=== PATIENT | male | born 1945 | race Caucasian/White ===

== ENCOUNTER 2019-05-17 | Observation (INO) | payer MEDICARE | END 2019-05-19 15:21 | disposition home or self-care (01) | PROVIDERS: ADMIT Hospitalist | CPT/HCPCS: 96376 ×2; 96375; 93005 ×2; 96374; 99285; 36415; 94640 ×5; 85379; 83880 ×2; 80061; 80048 ×3; 83735; 84484; 85025; 87502; 71046; G0378 ×3; J1940 ×2; J7512 ×2 ==

== ENCOUNTER 2020-07-26 11:47 | Emergency (ER) | payer MEDICARE ==
[2020-07-26 11:55] VITALS: TEMP 98.2
[2020-07-26 12:36] LABS: Appearance,Urine Clear (Clear); Bilirubin,Urine Negative (Negative); Blood,Urine Small (Negative); Color,Urine Yellow; Glucose,Urine (UA) 4+ (Negative); Ketones,Urine Negative (Negative); Leukocyte Esterase,Urine Negative (Negative); Mucus,Urine Rare /hpf; Nitrite,Urine Negative (Negative); Protein,Urine 3+ (Negative); RBC,Urine 3 /hpf (0-5); Specific Gravity,Urine 1.015 (1.001-1.035); Urobilinogen,Urine <2.0 mg/dL (<2.0); WBC,Urine 3 /hpf (0-5)
--- NOTE | 2020-07-26 14:50 | ED ---
General Adult HPI <Ranjeet Alarcon - Last Filed: 07/26/20 15:21> - General Source: patient, family Mode of arrival: ambulatory Limitations: no limitations <Neftaly Ortega - Last Filed: 07/26/20 15:23> - General Chief complaint: Urogenital Stated complaint: Urogenital Time Seen by Provider: 07/26/20 14:04 - History of Present Illness Initial comments: 74-year-old male with pertinent past medical history of prostate disorder presents to the emergency room for a chief complaint of difficulty urinating. Patient states that since Thursday he has had pressure in his suprapubic area and his urine stream has decreased. States he feels like he has to urinate but can only dribble. He states he has had issues with this before and is on Flomax. He has never had to have a catheter.Patient has no other complaints at this time including shortness of breath, chest pain, abdominal pain, nausea or vomiting, headache, or visual changes. (Neftaly Ortega) - Related Data Home Medications Medication Instructions Recorded Confirmed Ezetimibe [Zetia] 10 mg PO DAILY 05/17/19 05/17/19 Fenofibrate Nanocrystallized 145 mg PO DAILY 05/17/19 05/17/19 [Fenofibrate] INSULIN ASPART (NovoLOG) [NovoLOG 14 unit SQ AC-TID 05/17/19 05/17/19 (formulary)] Insulin Glargine [Lantus] 50 unit SQ HS 05/17/19 05/17/19 Losartan Potassium [Cozaar] 50 mg PO DAILY 05/17/19 05/17/19 Rosuvastatin Calcium [Crestor] 20 mg PO DAILY 05/17/19 05/17/19 Tamsulosin HCl [Flomax] 0.4 mg PO DAILY 05/17/19 05/17/19 metFORMIN HCL 1,000 mg PO AC-BID 05/17/19 05/17/19 Previous Rx's Medication Instructions Recorded Metoprolol Tartrate [Lopressor] 50 mg PO BID #60 tab 08/14/13 Aspirin 81 mg PO DAILY chew 05/19/19 Beclomethasone Dip 80 Mcg/Puff 1 puff INHALATION DAILY #1 puff 05/19/19 [Qvar] Furosemide [Lasix] 20 mg PO DAILY #30 tab 05/19/19 Ipratropium-Albuterol Nebulize 3 ml INHALATION BID #60 ml 05/19/19 [Duoneb 0.5 mg-3 mg/3 ml Soln] hydrALAZINE HCL [Apresoline] 25 mg PO TID #90 tab 05/19/19 Allergies Allergy/AdvReac Type Severity Reaction Status Date / Time No Known Allergies Allergy Verified 07/26/20 11:55 Review of Systems ROS Other: All systems not noted in ROS Statement are negative. <Ranjeet Alarcon - Last Filed: 07/26/20 15:21> ROS Other: All systems not noted in ROS Statement are negative. <Neftaly Ortega - Last Filed: 07/26/20 15:23> ROS Statement: Those systems with pertinent positive or pertinent negative responses have been documented in the HPI. Past Medical History Past Medical History: Coronary Artery Disease (CAD), Chest Pain / Angina, Diabetes Mellitus, Eye Disorder, GERD/Reflux, Hyperlipidemia, Hypertension, Myocardial Infarction ([place]), Prostate Disorder Additional Past Medical History / Comment(s): IDDM type II, BPH, R eye start of pt believes glaucoma, L eye surgery and has decreased vision in that eye, chronic low back pain/T shoulder pain with limited ROM past few months, BPH. Last Myocardial Infarction Date:: 2013 History of Any Multi-Drug Resistant Organisms: None Reported Past Surgical History: Coronary Bypass/CABG, Heart Catheterization, Hernia Repair Additional Past Surgical History / Comment(s): 2013 CABG 4 vessel, abdominal hernia repair, colonoscopy, L eye "cataract fell behind eye and surgery performed to retrieve it caused damage/decreased vision. Past Anesthesia/Blood Transfusion Reactions: No Reported Reaction Past Psychological History: No Psychological Hx Reported Smoking Status: Never smoker Past Alcohol Use History: Occasional Past Drug Use History: None Reported - Past Family History Father Family Medical History: Renal Disease Additional Family Medical History / Comment(s): Father from renal failure. He was on dialysis. Brother(s) Family Medical History: Renal Disease Additional Family Medical History / Comment(s): Pt has 2 brothers who from renal failure. Both were on dialysis. Mother Family Medical History: Dementia, Diabetes Mellitus, Vascular Disorder Additional Family Medical History / Comment(s): Mother had a abdominal aneurysm. She lived into her 90s. <Neftaly Ortega P - Last Filed: 07/26/20 15:23> General Exam Limitations: no limitations General appearance: alert, in no apparent distress Head exam: Present: atraumatic Eye exam: Present: normal appearance, PERRL, EOMI. Absent: scleral icterus, conjunctival injection, periorbital swelling ENT exam: Present: normal exam, mucous membranes moist Neck exam: Present: normal inspection, full ROM. Absent: tenderness, meningismus, lymphadenopathy Respiratory exam: Present: normal lung sounds bilaterally. Absent: respiratory distress, wheezes, rales, rhonchi, stridor Cardiovascular Exam: Present: regular rate, normal rhythm, normal heart sounds. Absent: systolic murmur, diastolic murmur, rubs, gallop, clicks GI/Abdominal exam: Present: soft, tenderness (Minimal suprapubic tenderness.), normal bowel sounds. Absent: distended, guarding, rebound, rigid <Neftaly Ortega - Last Filed: 07/26/20 15:23> Course <Ranjeet Alarcon - Last Filed: 07/26/20 15:21> Vital Signs 07/26/20 11:52 Temperature 98.2 F Pulse Rate 98 Respiratory 18 Rate Blood Pressure 207/107 O2 Sat by Pulse 95 Oximetry - Reevaluation(s) Reevaluation #1: 07/26/20 15:22 PA supervision: I personally evaluate this case patient did present with complaints of suprapubic discomfort and decreased urinary output for 3 days. He's had frequency. No fevers chills or sweats. He is found clinically to have a distended bladder and bladder scan large amount of urine present. The symptoms resolve after catheterization. Also he is not taking his blood pressure medicines for a couple days. He is asymptomatic otherwise he'll be placed back on his medications and follow-up. I do agree with the assessment and plan (Ranjeet Alarcon) Medical Decision Making <Neftaly Ortega - Last Filed: 07/26/20 15:23> - Medical Decision Making Patient hypertensive likely secondary to pain as well as the fact that he has not taken his metoprolol, hydralazine, or losartan for 2 days because he has not felt well. Patient does not have any symptoms of hypertension including chest pain, shortness of breath, dizziness, headache. Dubois catheter was placed and patient did have 1400 mls retained in his bladder. There is a small amount of blood however no obvious evidence of infection. This is likely related to out what obstruction. At this time patient can be discharged home to follow up with urology. He is to return here for any worsening symptoms. (Neftaly Ortega) - Lab Data Lab Results 07/26/20 Range/Units 11:58 Urine Color Yellow Urine Appearance Clear (Clear) Urine pH 6.0 (5.0-8.0) Ur Specific [place] 1.015 (1.001-1.035) Urine Protein 3+ H (Negative) Urine Glucose (UA) 4+ H (Negative) Urine Ketones Negative (Negative) Urine Blood Small H (Negative) Urine Nitrite Negative (Negative) Urine Bilirubin Negative (Negative) Urine Urobilinogen <2.0 (<2.0) mg/dL Ur Leukocyte Esterase Negative (Negative) Urine RBC 3 (0-5) /hpf Urine WBC 3 (0-5) /hpf Urine Mucus Rare H (None) /hpf Disposition <Ranjeet Alarcon - Last Filed: 07/26/20 15:21> Is patient prescribed a controlled substance at d/c from ED?: No Time of Disposition: 15:18 <Neftaly Ortega - Last Filed: 07/26/20 15:23> Clinical Impression: Urinary retention, Hypertension Disposition: HOME SELF-CARE Condition: Good Instructions (If sedation given, give patient instructions): Dubois Catheter Placement and Care (ED) Additional Instructions: Please follow up with urology by calling tomorrow or today for the earliest available appointment. Please follow-up with primary care as well. Return to the emergency room for any worsening symptoms. Referrals: Zita Tai MD [Primary Care Provider] - 1-2 days Blaise Coates MD [STAFF PHYSICIAN] - 1-2 days
[2020-07-26 15:34] VITALS: BP 206/114; PULSE 97; RESP 16
== END 2020-07-26 15:30 | disposition home or self-care (01) ==
LOC: EC 11:47
DX: N40.1 Benign prostatic hyperplasia with lower urinary tract symptoms (principal); R33.8 Other retention of urine; I10 Essential (primary) hypertension; E11.36 Type 2 diabetes mellitus with diabetic cataract; E78.5 Hyperlipidemia, unspecified; I25.10 Atherosclerotic heart disease of native coronary artery without angina pectoris; I25.2 Old myocardial infarction; K21.9 Gastro-esophageal reflux disease without esophagitis; Z79.4 Long term (current) use of insulin; Z79.51 Long term (current) use of inhaled steroids; Z79.82 Long term (current) use of aspirin; Z83.3 Family history of diabetes mellitus; Z95.1 Presence of aortocoronary bypass graft
CPT/HCPCS: 51702; 81001; 99283

== ENCOUNTER → 2020-09-06 | Outpatient (CLI) | payer MEDICARE ==
[2020-09-06 12:52] LABS: Basophils % (A) 1 %; Eosinophils # (A) 0.8 k/uL (0-0.7); Eosinophils % (A) 13 %; HCT 40.6 % (39.0-53.0); HGB 13.4 gm/dL (13.0-17.5); Lymphocytes # (A) 1.1 k/uL (1.0-4.8); Lymphocytes % (A) 18 %; MCH 29.1 pg (25.0-35.0); MCV 88.1 fL (80.0-100.0); Monocytes # (A) 0.4 k/uL (0-1.0); Monocytes % (A) 6 %; Neutrophils # (A) 3.7 k/uL (1.3-7.7); Neutrophils % (A) 60 %; Platelet Count 247 k/uL (150-450); RBC 4.61 m/uL (4.30-5.90); RDW 14.2 % (11.5-15.5); WBC 6.2 k/uL (3.8-10.6)
[2020-09-06 13:14] LABS: Calcium 9.9 mg/dL (8.4-10.2); Potassium 4.4 mmol/L (3.5-5.1)
== END | disposition home or self-care (01) ==
LOC: LABPAT 11:26
PROVIDERS: ATTEND Urology
DX: Z01.812 Encounter for preprocedural laboratory examination (principal); E11.9 Type 2 diabetes mellitus without complications; N39.0 Urinary tract infection, site not specified; N40.1 Benign prostatic hyperplasia with lower urinary tract symptoms
CPT/HCPCS: 36415; 80048; 85025; 87086

== ENCOUNTER 2020-09-13 08:09 | Day surgery (SDC) | payer MEDICARE ==
[2020-09-11 10:55] VITALS: BMI 28.5
[~2020-09-13 08:09] MED LIST: DEXAMETHASONE SOD PHOSPHATE 4 MG/ML 1 ML VIAL IV ONE; GENTAMICIN 130 MG in SODIUM CHLORIDE 0.9% 100 ML IVPB PRN; HYDROmorphone 0.5 MG/0.5 ML SYRINGE IVP PRN; LIDOCAINE 1% (10MG/ML) FOR IV START INTRADERMA PRN; MIDAZOLAM 2 MG/2 ML VIAL IV PRN; ONDANSETRON 4 MG/2 ML VIAL IVP ONE
[2020-09-13] MEDS: LACTATED RINGERS 1,000 ML IV SCH ×2 (09:32→09:50)
[2020-09-13 09:54] LABS: Glucose,Whole Blood 96 mg/dL (75-99)
--- NOTE | 2020-09-13 10:04 | P.GSHP ---
History of Present Illness H&P Date: 09/07/20 Chief Complaint: Urinary retention The patient is a 74-year-old white male who presented in July 2020 [place] retention. 1400 mL of urine was drained from the bladder. He failed a voiding trial despite treatment with tamsulosin. A cystometrogram suggests normal detrusor function. Cystoscopy shows a visually occluded prostate with a trilobar configuration, and bladder trabeculation. He has elected to undergo a TURP and comes for this reason. - Cardiovascular Cardiovascular: Reports high blood pressure - Genitourinary (Male) Genitourinary: Reports as per HPI Past Medical History Past Medical History: Coronary Artery Disease (CAD), Chest Pain / Angina, Diabetes Mellitus, Eye Disorder, GERD/Reflux, Hyperlipidemia, Hypertension, Myocardial Infarction ([place]), Prostate Disorder Additional Past Medical History / Comment(s): IDDM type II, BPH, R eye start of pt believes glaucoma, L eye surgery and has decreased vision in that eye, chronic low back pain/T shoulder pain with limited ROM past few months, BPH. Last Myocardial Infarction Date:: 2013 History of Any Multi-Drug Resistant Organisms: None Reported Past Surgical History: Coronary Bypass/CABG, Heart Catheterization, Hernia Repair Additional Past Surgical History / Comment(s): 2013 CABG 4 vessel, abdominal hernia repair, colonoscopy, L eye "cataract fell behind eye and surgery performed to retrieve it caused damage/decreased vision. Past Anesthesia/Blood Transfusion Reactions: No Reported Reaction Past Psychological History: No Psychological Hx Reported Smoking Status: Never smoker Past Alcohol Use History: Occasional Past Drug Use History: None Reported - Past Family History Father Family Medical History: Renal Disease Additional Family Medical History / Comment(s): Father from renal failure. He was on dialysis. Brother(s) Family Medical History: Renal Disease Additional Family Medical History / Comment(s): Pt has 2 brothers who from renal failure. Both were on dialysis. Mother Family Medical History: Dementia, Diabetes Mellitus, Vascular Disorder Additional Family Medical History / Comment(s): Mother had a abdominal aneurysm. She lived into her 90s. Medications and Allergies Home Medications Medication Instructions Recorded Confirmed Type Ezetimibe [Zetia] 10 mg PO DAILY 05/17/19 09/13/20 History Fenofibrate Nanocrystallized 145 mg PO HS 05/17/19 09/13/20 History [Fenofibrate] INSULIN ASPART (NovoLOG) [NovoLOG 12 unit SQ AC-BID 05/17/19 09/13/20 History (formulary)] Insulin Glargine [Lantus] 50 unit SQ HS 05/17/19 09/13/20 History Losartan Potassium [Cozaar] 50 mg PO HS 05/17/19 09/13/20 History Rosuvastatin Calcium [Crestor] 20 mg PO DAILY 05/17/19 09/13/20 History Tamsulosin HCl [Flomax] 0.4 mg PO DAILY 05/17/19 09/13/20 History metFORMIN HCL 1,000 mg PO BID 05/17/19 09/13/20 History Aspirin 81 mg PO DAILY chew 05/19/19 09/13/20 Rx Furosemide [Lasix] 20 mg PO DAILY #30 tab 05/19/19 09/13/20 Rx Beclomethasone Dip 80 Mcg/Puff 1 puff INHALATION DAILY PRN 09/11/20 09/13/20 History [Qvar] Metoprolol Tartrate [Lopressor] 50 mg PO QAM 09/11/20 09/13/20 History Multivitamins, Thera [Multivitamin 1 tab PO DAILY 09/11/20 09/13/20 History (formulary)] hydrALAZINE HCL [Apresoline] 25 mg PO QAM 09/11/20 09/13/20 History Allergies Allergy/AdvReac Type Severity Reaction Status Date / Time No Known Allergies Allergy Verified 09/13/20 09:40 Surgical - Exam - General well developed, well nourished, no distress - Neck no masses, trachea midline - Respiratory normal respiratory effort - Abdomen Abdomen: soft, non tender, no guarding, no rigid, no rebound - Genitourinary normal penis with no external lesions, testicles non-tender - Rectum Rectum: normal sphincter tone, no masses, other (Prostate enlarged but smooth) - Psychiatric oriented to time, oriented to person, oriented to place, speech is normal, memory intact Assessment and Plan (1) Urinary retention Current Visit: No Status: Acute Code(s): R33.9 - RETENTION OF URINE, UNSPECIFIED SNOMED Code(s): 355098757 Plan: Cystoscopy, bipolar transurethral resection of prostate (TURP). The procedure has been reviewed in detail with the patient and his . The anticipated perioperative course was discussed, as was the rationale for the procedure and potential risks, which include anesthesia, bleeding, infection, urinary incontinence, and persistent urinary retention.
[2020-09-13] MEDS ORDERED: LIDOCAINE 1% INJ 10MG/ML (20 ML MDV) ONE (10:14)
[2020-09-13] MEDS ORDERED: ROCURONIUM 10 MG/ML (5 ML VIAL) IV ONE (10:14)
[2020-09-13] MEDS ORDERED: NEOSTIGMINE 1 MG/ML 10 ML VIAL ONE (10:14)
[2020-09-13] MEDS ORDERED: HYDROmorphone (PF) 1 MG/ML ONE (10:14)
[2020-09-13] MEDS ORDERED: GLYCOPYRROLATE 0.2 MG/ML 2 ML VIAL ONE (10:14)
[2020-09-13] MEDS ORDERED: SUCCINYLCHOLINE CHLORIDE 100 MG/5 ML SYR IV ONE (10:14)
[2020-09-13] MEDS ORDERED: FUROSEMIDE 10 MG/ML 2 ML VIAL ONE (10:14)
[2020-09-13] MEDS ORDERED: ePHEDrine SULFATE/0.9% NACL/PF 50 MG/5 ML SYRINGE IV ONE (10:14)
[2020-09-13] MEDS ORDERED: PROPOFOL 10 MG/ML 20 ML VIAL IV ONE (10:14)
[2020-09-13] MEDS ORDERED: fentaNYL (PF) 50 MCG/ML 2 ML AMP ONE (10:14)
[2020-09-13] MEDS ORDERED: LACTATED RINGERS 1,000 ML IV ONE (12:56)
--- NOTE | 2020-09-13 13:18 | P.OP ---
Date of Procedure: 09/13/20 Preoperative Diagnosis: Urinary retention secondary to BPH Postoperative Diagnosis: Same Procedure(s) Performed: Cystoscopy, bipolar transurethral resection of prostate (TURP) Anesthesia: LIZA Surgeon: Blaise Coates Estimated Blood Loss (ml): 50 IV fluids (ml): 1,000 Condition: stable Disposition: PACU Indications for Procedure: The patient is a 74-year-old white male who presented in July 2020 [place] retention. 1400 mL of urine was drained from the bladder. He failed a voiding trial despite treatment with tamsulosin. A cystometrogram suggests normal detrusor function. Cystoscopy shows a visually occluded prostate with a trilobar configuration, and bladder trabeculation. He has elected to undergo a TURP and comes for this reason. Operative Findings: Completely occluded prostate, trilobar configuration. Description of Procedure: The patient was taken in the operating room and placed in the dorsolithotomy position. The external genitalia was prepped and draped sterilely. The 25- [place] ACMI resectoscope sheath was introduced into the bladder. The bladder was inspected. Both ureteral orifices were of normal anatomic location and configuration, and clear urine effluxed from both. No tumors or foreign bodies were seen. Examination of the prostate revealed complete obstruction with a trilobar configuration. Using the bipolar cutting loop, the median lobe was resected in its entirety. This allowed the resectoscope to be easily advanced into the bladder. Next, the lateral lobes were resected down to the surgical capsule. The floor of the prostate was then resected, proximal to the verumontanum. Next, the remaining anterior tissue was resected. The residual apical tissue was then carefully resected, with care taken to avoid injury to the external urinary sphincter. The resection was carried down to the surgical capsule in all 4 quadrants. The prostatic fossa was then carefully examined, and any areas of bleeding were controlled with electrocautery. Excellent hemostasis was attained. The resectoscope was withdrawn into the bulbous urethra. The external urinary sphincter remained intact. The prostatic fossa was open. The Aspen Evian evacuator was used to remove all prostate chips from the bladder. These were saved and sent for pathologic examination. The resectoscope was removed, and a 20 [place] Dubois catheter was placed. The return was essentially clear. The patient tolerated the procedure well was taken to the recovery room in stable condition.
[2020-09-13 13:24] VITALS: TEMP 97.1
[2020-09-13 13:40] VITALS: RESP 16
[2020-09-13 13:48] LABS: Glucose,Whole Blood 81 mg/dL (75-99)
[2020-09-13 14:44] VITALS: BP 148/78; PULSE 68
== END 2020-09-13 15:10 | disposition home or self-care (01) ==
LOC: OR 08:09
PROVIDERS: ATTEND Urology
DX: N40.1 Benign prostatic hyperplasia with lower urinary tract symptoms (principal); R33.8 Other retention of urine; E78.5 Hyperlipidemia, unspecified; I10 Essential (primary) hypertension; I25.10 Atherosclerotic heart disease of native coronary artery without angina pectoris; I25.2 Old myocardial infarction; K21.9 Gastro-esophageal reflux disease without esophagitis; N13.8 Other obstructive and reflux uropathy; N32.89 Other specified disorders of bladder; E11.9 Type 2 diabetes mellitus without complications; Z79.4 Long term (current) use of insulin; Z79.51 Long term (current) use of inhaled steroids; Z79.82 Long term (current) use of aspirin; Z83.3 Family history of diabetes mellitus; Z95.1 Presence of aortocoronary bypass graft
CPT/HCPCS: 52601; 88305; J1940; J2710; J0690; J2001; J3010; J1580; J1170; J0330; J2704

== ENCOUNTER → 2021-05-10 | Outpatient (CLI) | payer MEDICARE ==
[~2021-05-10] MED LIST changes: -DEXAMETHASONE SOD PHOSPHATE 4 MG/ML 1 ML VIAL IV ONE; -GENTAMICIN 130 MG in SODIUM CHLORIDE 0.9% 100 ML IVPB PRN; -HYDROmorphone 0.5 MG/0.5 ML SYRINGE IVP PRN; +IODINE/POTASS IOD (LUGOLS) BOTTLE TOPICAL ONE; -LIDOCAINE 1% (10MG/ML) FOR IV START INTRADERMA PRN; -MIDAZOLAM 2 MG/2 ML VIAL IV PRN; -ONDANSETRON 4 MG/2 ML VIAL IVP ONE
--- NOTE | 2021-05-13 07:45 | NM ---
EXAMINATION TYPE: NM DatScan Brain SPECT DATE OF EXAM: 05/10/2021 COMPARISON: NONE HISTORY: G 25.0, tremor TECHNIQUE: 10 drops of Lugol's solution was administered 1 hour prior to injection as a thyroid bloc natasha agent. After the administration of 4.4 mCi I-123 Ioflupane DaTscan. Images obtained [address] injection. SPECT images of the brain were acquired with axial and coronal reconstructions. FINDINGS: There is abnormal decreased uptake within the striata bilaterally. Striatal uptake is also asymmetric , somewhat decreased overall on the right as compared to left. IMPRESSION: Abnormal ROSA scan
== END | disposition home or self-care (01) ==
LOC: RADNMMAIN 10:30
PROVIDERS: ATTEND Psychiatry & Neurology Neurology
DX: G25.0 Essential tremor (principal)
CPT/HCPCS: 78803; A9584

== ENCOUNTER 2024-04-26 09:26 | Day surgery (SDC) | payer MEDICARE ==
[~2024-04-26 09:26] MED LIST changes: -IODINE/POTASS IOD (LUGOLS) BOTTLE TOPICAL ONE; +LIDOCAINE 1% (10MG/ML) FOR IV START INTRADERMA PRN
[2024-04-26] MEDS: IV FLUID CONTINUATION 1,000 ML IV ONE (10:04)
[2024-04-26 10:10] VITALS: TEMP 98
[2024-04-26] MEDS: LACTATED RINGERS 1,000 ML IV SCH (10:25)
[2024-04-26 10:29] LABS: Glucose,Whole Blood 81 mg/dL (70-110)
[2024-04-26] MEDS ORDERED: LIDOCAINE 1% INJ 10MG/ML (20 ML MDV) ONE (10:58)
[2024-04-26] MEDS ORDERED: PROPOFOL 10 MG/ML 20 ML VIAL IV ONE (10:58)
--- NOTE | 2024-04-26 11:15 | P.PCN ---
Date of Procedure: 04/26/24 Procedure(s) Performed: BRIEF HISTORY: Patient is a 78-year-old, pleasant, white man scheduled for an upper endoscopy as a part of evaluation of intermittent dysphagia to solids for the last 3 months duration.. PROCEDURE PERFORMED: Esophagogastroduodenoscopy biopsy and dilation. PREOPERATIVE DIAGNOSIS: Intermittent dysphagia to solids. IV sedation per anesthesia. PROCEDURE: After informed consent was obtained, the patient was brought into the endoscopy unit. IV sedation was administered by Anesthesia under continuous monitoring. Initially the Olympus GIF-140 video endoscope was inserted into the mouth. Esophagus intubated without any difficulty. It was gradually advanced into the stomach and duodenum and carefully examined. The bulb and the second part of the duodenum appeared normal. The scope at this time was withdrawn to the stomach, adequately insufflated with air, and upon careful examination, mucosa of the antrum, had gastritis and biopsies were done from this area. Mucosa body, cardia and the fundus appeared normal. The scope was then withdrawn into the esophagus. The GE junction was located at 40 cm from the incisors. A long segment of Guadarrama's esophagus extending from 35 to 40 cm from the incisors and multiple biopsies were done from this area. The rest of the esophagus appeared normal. There were no erosions or ulcerations seen. In the proximal cervical esophagus there was a circumferential esophageal web identified at 16 cm from the incisors and this was dilated using for 1215 mm TTS balloon. Also there was evidence of mild cricopharyngeal dysfunction noted. And the patient tolerated the procedure well. IMPRESSION: 1. 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 2. 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 Mild cricopharyngeal dysfunction 4. Mild antral gastric RECOMMENDATIONS: The findings of this examination were discussed with the patient as well as his family. He was advised to follow-up with the biopsy res ults. Remain on clear request for 2 hours. If the biopsy confirms the presence of Guadarrama's esophagus he can have repeat upper endoscopy in 3 years..
[2024-04-26 12:07] VITALS: BP 156/81; PULSE 60; RESP 18
== END 2024-04-26 12:23 | disposition home or self-care (01) ==
LOC: ORWHC2ENDO 09:26
PROVIDERS: ATTEND Internal Medicine Gastroenterology
DX: K29.50 Unspecified chronic gastritis without bleeding (principal); K22.70 Barrett's esophagus without dysplasia; Q39.4 Esophageal web; I25.2 Old myocardial infarction; E78.5 Hyperlipidemia, unspecified; I11.0 Hypertensive heart disease with heart failure; I50.9 Heart failure, unspecified; E11.9 Type 2 diabetes mellitus without complications; G40.909 Epilepsy, unspecified, not intractable, without status epilepticus; M19.90 Unspecified osteoarthritis, unspecified site; G20.A1 Parkinson's disease without dyskinesia, without mention of fluctuations; K21.9 Gastro-esophageal reflux disease without esophagitis; N42.9 Disorder of prostate, unspecified; Z86.73 Personal history of transient ischemic attack (TIA), and cerebral infarction without residual deficits; Z98.890 Other specified postprocedural states; Z95.5 Presence of coronary angioplasty implant and graft; Z87.891 Personal history of nicotine dependence; Z79.82 Long term (current) use of aspirin; Z79.899 Other long term (current) drug therapy
CPT/HCPCS: 88305; 43239; 43249; J2003; J2704; C1726

== ENCOUNTER 2024-08-17 12:08 | Emergency (ER) | payer MEDICARE ==
[2024-08-17 12:35] VITALS: TEMP 98
--- NOTE | 2024-08-17 13:07 | ED ---
General Adult HPI - General Chief complaint: Nausea/Vomiting/Diarrhea Stated complaint: Post-op issue Time Seen by Provider: 08/17/24 12:35 Source: patient, family, RN notes reviewed, old records reviewed Mode of arrival: ambulatory Limitations: no limitations - History of Present Illness Initial comments: This is an 78-year-old male who presents to the emergency department stating that he has had difficulty swallowing since July 04. Patient had surgery done at [facility] on his esophagus and he continues to have problems swallowing and anytime he seems to take his pills he vomits them up. Patient states his surgeon told him come down to [facility] but they did not want to drive that far because its about 3-[address] so they decided to come here. patient states he is not nauseous unless he eats something and when he eats things he feels like it backs up in his esophagus and he eventually vomits it up. Patient states he has been losing weight. Patient denies any dizziness or lightheadedness. Patient denies any chest pain or difficulty breathing patient denies fever or chills. Patient states things have really not changed but they are not improving so he cannot continue to lose weight so would like to be worked up further. - Related Data Home Medications Medication Instructions Recorded Confirmed INSULIN ASPART (NovoLOG) [NovoLOG See Protocol SQ AC-BID 05/17/19 04/26/24 (formulary)] Insulin Glargine (Lantus) [Lantus 38 unit SQ HS 05/17/19 04/26/24 Vial] Multivitamins, Thera [Multivitamin 1 tab PO DAILY 09/11/20 04/26/24 (formulary)] Ezetimibe [Zetia] 10 mg PO DAILY 05/09/22 04/26/24 Furosemide [Lasix] 20 mg PO DAILY 05/09/22 04/26/24 Losartan [Cozaar] 50 mg PO DAILY 05/09/22 04/26/24 Rosuvastatin [Crestor] 20 mg PO HS 05/09/22 04/26/24 Tamsulosin HCl [Flomax] 0.4 mg PO DAILY 05/09/22 04/26/24 Carbidopa-Levodopa 10-100 mg 1 each PO HS 04/22/24 04/26/24 [Sinemet 10-100] carvediloL [Coreg] 12.5 mg PO BID 04/22/24 04/26/24 rOPINIRole HCL [Requip] 1 mg PO TID 04/22/24 04/26/24 Docusate [Colace] 100 mg PO HS PRN 04/25/24 04/26/24 Previous Rx's Medication Instructions Recorded Aspirin 81 mg PO DAILY chew 05/19/19 Allergies Allergy/AdvReac Type Severity Reaction Status Date / Time No Known Allergies Allergy Verified 04/26/24 10:10 Review of Systems ROS Statement: Those systems with pertinent positive or pertinent negative responses have been documented in the HPI. ROS Other: All systems not noted in ROS Statement are negative. Past Medical History Past Medical History: Coronary Artery Disease (CAD), Chest Pain / Angina, Heart Failure, Diabetes Mellitus, Eye Disorder, GERD/Reflux, Hyperlipidemia, Hypertension, Myocardial Infarction (MT), Osteoarthritis (OA), Prostate Disorder Additional Past Medical History / Comment(s): parkinsons-hand tremors, dysphagia w/solids & liquids, seizure vs stroke a few yrs ago-took seizure med for short period of time but not clear which occurred Last Myocardial Infarction Date:: 2013 History of Any Multi-Drug Resistant Organisms: None Reported Past Surgical History: Coronary Bypass/CABG, Heart Catheterization, Hernia Repair, Pacemaker Additional Past Surgical History / Comment(s): 5 way bypass Past Anesthesia/Blood Transfusion Reactions: No Reported Reaction Type of Cardiac Device: Permanent Pacemaker Device Placement Date:: unknown Past Psychological History: No Psychological Hx Reported Smoking Status: Former smoker Past Alcohol Use History: Occasional Past Drug Use History: None Reported - Past Family History Mother Family Medical History: Dementia, Diabetes Mellitus, Vascular Disorder Additional Family Medical History / Comment(s): Mother had a abdominal aneurysm. She lived into her 90s. General Exam - General Exam Comments Initial Comments: GENERAL: Patient is well-developed and well-nourished. Patient is nontoxic and well-hyd rated and is in no acute distress. ENT: Neck is soft and supple. No significant lymphadenopathy is noted. Oropharynx is clear. Moist mucous membranes. Neck has full range of motion without elicit ing any pain. EYES: The sclera were anicteric and conjunctiva were pink and moist. Extraocular mov ements were intact and pupils were equal round and reactive to light. Eyelids were unremarkable. PULMONARY: Unlabored respirations. Good breath sounds bilaterally. No audible rales rhonchi or wheezing was noted. CARDIOVASCULAR: There is a regular rate and rhythm without any murmurs gallops or rubs. ABDOMEN: Soft and nontender with normal bowel sounds. SKIN: Skin is clear with no lesions or rashes and otherwise unremarkable. NEUROLOGIC: Patient is alert and oriented x3. Cranial nerves II through XII are grossly intact. Motor and sensory are also intact. Normal speech, volume and content. Symmetrical smile. MUSCULOSKELETAL: Normal extremities with adequate strength and full range of motion. No lower extremity swelling or edema. No calf tenderness. PSYCHIATRIC: Normal psychiatric evaluation. Limitations: no limitations Course Vital Signs 08/17/24 08/17/24 12:32 13:13 Temperature 98 F Pulse Rate 87 77 Respiratory 20 16 Rate Blood Pressure 166/90 188/94 O2 Sat by Pulse 97 98 Oximetry Medical Decision Making - Medical Decision Making Was pt. sent in by a medical professional or institution (SHAILA Dacosta, COURT BAILIFF, urgent care, hospital, or shelter...) When possible be specific @ -No Did you speak to anyone other than the patient for history (EMS, parent, family, police, friend...)? What history was obtained from this source @ -No Did you review nursing and triage notes (agree or disagree)? Why? @ -I reviewed and agree with nursing and triage notes Were old charts reviewed (outside hosp., previous admission, EMS record, old EKG, old radiological studies, urgent care reports/EKG's, shelter records)? Report findings @ -No old charts were reviewed Differential Diagnosis? @ -Difficulty swallowing, dehydration, acute vomiting, this is not an all- inclusive list EKG interpreted by me (3pts min.). @ -As above X-rays interpreted by me (1pt min.). @ -None done CT interpreted by me (1pt min.). @ -None done U/S interpreted by me (1pt. min.). @ -None done What testing was considered but not performed or refused? (CT, X-rays, U/S, labs)? Why? @ -None What meds were considered but not given or refused? Why? @ -None Did you discuss the management of the patient with other professionals (professionals i.e. SHAILA Dacosta, COURT BAILIFF, lab, RT, psych nurse, social media community manager, public address announcer, teacher, records officer, protective services case worker)? Give summary @ -No Was smoking cessation discussed for >3mins.? @ -No Was critical care preformed (if so, how long)? @ -No Were there social determinants of health that impacted care today? How? (Homelessness, low income, unemployed, alcoholism, drug addiction, transportation, low edu. Level, literacy, decrease access to med. care, senior living, rehab)? @ -No Was there de-escalation of care discussed even if they declined (Discuss DNR or withdrawal of care, Hospice)? DNR status @ -No What co-morbidities impacted this encounter? (DM, HTN, Smoking, COPD, CAD, Cancer, CVA, ARF, Chemo, Hep., AIDS, mental health diagnosis, sleep apnea, morbid obesity)? @ -None Was patient admitted / discharged? Hospital course, mention meds given and route, prescriptions, significant lab abnormalities, going to OR and other per tinent info. @ -Patient has had no new symptoms for the last month and a half but he continues to not improve and have difficulty maintaining his weight because he cannot take enough fluids or food. Patient had surgery done at [facility] and it was recommended to them to follow-up with their surgeon but they did not want to drive that far and the understanding we have no one here that we will do that type of surgery Dr. William is on-call but she is already recommended them to follow-up with the surgeon in the past. They understand this and they will follow-up once discharged. Patient had lab work done it showed no acute abnormality patient was given fluid so he is not dehydrated and they will follow-up at [facility] Undiagnosed new problem with uncertain prognosis? @ -No Drug Therapy requiring intensive monitoring for toxicity (Heparin, Nitro, Insulin, Cardizem)? @ -No Were any procedures done? @ -No Diagnosis/symptom? @ -Chronic dysphagia Acute, or Chronic, or Acute on Chronic? @ -Chronic Uncomplicated (without systemic symptoms) or Complicated (systemic symptoms)? @ -Complicated Side effects of treatment? @ -No Exacerbation, Progression, or Severe Exacerbation? @ -No Poses a threat to life or bodily function? How? (Chest pain, USA, MT, pneumonia, PE, COPD, DKA, ARF, appy, cholecystitis, CVA, Diverticulitis, Homicidal, Suicidal, threat to staff... and all critical care pts) @ -No - Lab Data Result diagrams: 08/17/24 13:08 08/17/24 13:08 Lab Results 08/17/24 08/17/24 Range/Units 13:08 13:08 WBC 6.48 (4.50-10.00) 10*3/uL RBC 5.12 (4.40-5.60) 10*6/uL Hgb 15.4 (13.0-17.0) g/dL Hct 46.6 (39.6-50.0) % MCV 91.0 (80.0-97.0) fL MCH 30.1 (27.0-32.0) pg MCHC 33.0 (32.0-37.0) g/dL Plt Count 170 (140-440) 10*3/uL MPV 10.5 (9.5-12.2) fL Immature Gran % (Auto) 0.5 % Neutrophils % 65.9 % Lymphocytes % 18.1 % Monocytes % 8.5 % Eosinophils % 6.2 % Basophils % 0.8 % Immature Gran # 0.03 (0.00-0.04) 10*3/uL Neutrophils # 4.28 (1.80-7.70) 10*3/uL Lymphocytes # 1.17 (0.90-5.00) 10*3/uL Monocytes # 0.55 (0.20-1.00) 10*3/uL Eosinophils # 0.40 H (0.04-0.35) 10*3/uL Basophils # 0.05 (0.00-0.10) 10*3/uL Sodium 138 (137-145) mmol/L Potassium 3.7 (3.5-5.1) mmol/L Chloride 103 (98-107) mmol/L Carbon Dioxide 21 L (22-30) mmol/L Anion Gap 14 mmol/L BUN 23 H (9-20) mg/dL Creatinine 1.71 H (0.66-1.25) mg/dL Est GFR (CKD-EPI)AfAm 43 (>60 ml/min/1.73 sqM) Est GFR (CKD-EPI)NonAf 37 (>60 ml/min/1.73 sqM) Glucose 128 H (74-99) mg/dL Calcium 10.0 (8.4-10.2) mg/dL Magnesium 1.6 (1.6-2.3) mg/dL Total Bilirubin 1.5 H (0.2-1.3) mg/dL AST 26 (17-59) U/L ALT 15 (4-49) U/L Alkaline Phosphatase 91 (38-126) U/L Total Protein 7.0 (6.3-8.2) g/dL Albumin 4.4 (3.5-5.0) g/dL Lipase 42 (23-300) U/L Disposition Clinical Impression: Dysphagia Disposition: HOME SELF-CARE Condition: Good Instructions (If sedation given, give patient instructions): Dysphagia (ED) Additional Instructions: Patient should follow-up with [facility] surgeon as soon as possible Is patient prescribed a controlled substance at d/c from ED?: No Referrals: Katie Sinclair MD [Primary Care Provider] - 1-2 days Time of Disposition: 13:49
[2024-08-17] MEDS: SODIUM CHLORIDE 0.9% 500 ML 500 ML IV ONE (13:13)
[2024-08-17] MEDS: SODIUM CHLORIDE 0.9% 1,000 ML IV ONE (13:13)
[2024-08-17 13:14] LABS: Basophils # (A) 0.05 10*3/uL (0.00-0.10); Basophils % (A) 0.8 %; Eosinophils % (A) 6.2 %; HCT 46.6 % (39.6-50.0); HGB 15.4 g/dL (13.0-17.0); Lymphocytes # (A) 1.17 10*3/uL (0.90-5.00); Lymphocytes % (A) 18.1 %; MCH 30.1 pg (27.0-32.0); Mean Platelet Volume 10.5 fL (9.5-12.2); Monocytes # (A) 0.55 10*3/uL (0.20-1.00); Monocytes % (A) 8.5 %; Neutrophils # (A) 4.28 10*3/uL (1.80-7.70); Neutrophils % (A) 65.9 %; Platelet Count 170 10*3/uL (140-440); RBC 5.12 10*6/uL (4.40-5.60); RDW 14.1 % (11.5-14.5); WBC 6.48 10*3/uL (4.50-10.00)
[2024-08-17 13:35] LABS: ALT 15 U/L (4-49); AST 26 U/L (17-59); African American GFR (CKD) 43 (>60 ml/min/1.73 sqM); Albumin 4.4 g/dL (3.5-5.0); Alkaline Phosphatase 91 U/L (38-126); Anion Gap 14 mmol/L; Blood Urea Nitrogen 23 mg/dL (9-20); Carbon Dioxide 21 mmol/L (22-30); Chloride 103 mmol/L (98-107); Glucose 128 mg/dL (74-99); Lipase 42 U/L (23-300); Magnesium 1.6 mg/dL (1.6-2.3); Non-African American GFR(CKD) 37 (>60 ml/min/1.73 sqM); Potassium 3.7 mmol/L (3.5-5.1); Sodium 138 mmol/L (137-145); Total Bilirubin 1.5 mg/dL (0.2-1.3)
[2024-08-17 14:23] VITALS: BP 197/94; PULSE 64; RESP 18
== END 2024-08-17 14:22 | disposition home or self-care (01) ==
LOC: EC 12:08
DX: R13.10 Dysphagia, unspecified (principal); Z87.891 Personal history of nicotine dependence
CPT/HCPCS: 36415; 80053; 83690; 83735; 85025; 96360; 99284